=== PATIENT | male | born 1960 | race Caucasian/White ===

== ENCOUNTER 2023-10-15 11:21 | Inpatient (IN) | payer BC ==
[~2023-10-15 11:21] MED LIST: Iopamidol 300 61% 100 ML VIAL FS ONE
[2023-10-15 12:13] LABS: #Eosinphils 0.1 10x3/uL (0.0-0.5); #Monocytes 0.8 10x3/uL (0.0-1.1); #Neutrophils 7.1 10x3/uL (1.5-8.4); %Basophils 0.4 % (0.0-2.0); %Eosinophils 1.4 % (0.0-6.0); %Lymphocytes 13.6 % (18.0-47.0); %Monocytes 8.7 % (0.0-10.0); %Neutrophils 75.5 % (40.0-75.0); Hemoglobin 16.7 g/dL (13.5-17.5); Mean Corpuscular HGB CONC 34.1 g/dL (32.0-36.0); Mean Corpuscular Hemoglobin 28.7 pg (27.0-33.0); Mean Corpuscular Volume 84.2 fl (81.2-95.1); Mean Platelet Volume 9.8 fl (7.4-10.4); Platelet Count 268 10x3/uL (150-450); RBC Distribution Width 13.3 % (11.5-14.5); Red Blood Cell (RBC) Count 5.82 10x6/uL (4.32-5.72); White Blood Cell (WBC) Count 9.4 10x3/uL (3.5-10.5)
[2023-10-15 12:24] LABS: ALT (SGPT) 39 U/L (8-55); AST (SGOT) 32 U/L (5-34); Albumin 4.4 g/dL (3.4-4.8); Alkaline Phosphatase 98 U/L (40-110); Anion Gap 18 mmol/L (10-20); BUN (Urea Nitrogen) 10 mg/dL (8.4-25.7); Bilirubin, Total 2.6 mg/dL (0.2-1.2); Calc. Creatinine Clearance 0 mL/min (70-130); Calcium 9.6 mg/dL (7.8-10.44); Carbon Dioxide 27 mmol/L (23-31); Chloride 99 mmol/L (98-107); Estimated GFR 73; Globulin 2.3 g/dL (2.4-3.5); Glucose 125 mg/dL (80-115); Lipase 23 U/L (8-78); Potassium 3.7 mmol/L (3.5-5.1); Protein, Total 6.7 g/dL (5.8-8.1); Sodium 140 mmol/L (136-145)
[2023-10-15 12:29] LABS: Troponin I Less than 0.010 ng/mL (< 0.028)
[2023-10-15] MEDS ORDERED: Senokot S 8.6-50 MG TAB PO PRN (16:04)
[2023-10-15] MEDS ORDERED: Guaifenesin DM 100-10/5 ML UDCUP PO PRN (16:04)
[2023-10-15] MEDS ORDERED: Ondansetron PF 4 MG/2 ML Vial IVP PRN (16:04)
[2023-10-15] MEDS ORDERED: Bisacodyl 10 MG SUPP PR PRN (16:04)
[2023-10-15] MEDS ORDERED: Acetaminophen 325 MG TAB PO PRN (16:04)
[2023-10-15] MEDS ORDERED: Morphine 2 MG/ML VIAL SLOW IVP PRN (16:08)
[2023-10-15] MEDS ORDERED: Ketorolac Tromethamine 30 MG/ML VIAL IVP PRN (16:08)
[2023-10-15] MEDS ORDERED: Lidocaine Viscous Sol 2% 15 ml UD Cup FS SCH (17:00)
[2023-10-15 17:58] VITALS: BMI 27.2
[2023-10-15] MEDS: Sodium Chloride 0.9% 1,000 ML IV SCH (18:16)
[2023-10-15] MEDS: Famotidine/PF 20 mg/2ml Vial SLOW IVP SCH (21:23)
[2023-10-16 04:45] LABS: #Basophils 0.1 10x3/uL (0.0-0.2); #Eosinphils 0.2 10x3/uL (0.0-0.5); #Monocytes 0.8 10x3/uL (0.0-1.1); #Neutrophils 6.9 10x3/uL (1.5-8.4); %Basophils 0.6 % (0.0-2.0); %Eosinophils 1.9 % (0.0-6.0); %Lymphocytes 11.2 % (18.0-47.0); %Monocytes 9.3 % (0.0-10.0); %Neutrophils 76.7 % (40.0-75.0); Hematocrit 43.3 % (38.8-50.0); Hemoglobin 14.7 g/dL (13.5-17.5); Mean Corpuscular HGB CONC 33.9 g/dL (32.0-36.0); Mean Corpuscular Hemoglobin 28.9 pg (27.0-33.0); Mean Corpuscular Volume 85.1 fl (81.2-95.1); Mean Platelet Volume 9.8 fl (7.4-10.4); Platelet Count 233 10x3/uL (150-450); RBC Distribution Width 13.2 % (11.5-14.5); Red Blood Cell (RBC) Count 5.09 10x6/uL (4.32-5.72); White Blood Cell (WBC) Count 8.9 10x3/uL (3.5-10.5)
[2023-10-16] MEDS: Sodium Chloride 0.9% 1,000 ML IV SCH ×3 (04:47→21:48)
[2023-10-16 05:24] LABS: ALT (SGPT) 43 U/L (8-55); AST (SGOT) 35 U/L (5-34); Albumin 3.7 g/dL (3.4-4.8); Alkaline Phosphatase 87 U/L (40-110); Anion Gap 16 mmol/L (10-20); BUN (Urea Nitrogen) 13 mg/dL (8.4-25.7); Bilirubin, Total 2.6 mg/dL (0.2-1.2); Calc. Creatinine Clearance 90 mL/min (70-130); Calcium 8.8 mg/dL (7.8-10.44); Carbon Dioxide 25 mmol/L (23-31); Chloride 103 mmol/L (98-107); Estimated GFR 81; Globulin 2.2 g/dL (2.4-3.5); Glucose 103 mg/dL (80-115); Potassium 3.7 mmol/L (3.5-5.1); Protein, Total 5.9 g/dL (5.8-8.1); Sodium 140 mmol/L (136-145)
[2023-10-16] MEDS: Enoxaparin 40 MG (0.4 mL) SYRINGE SC SCH (09:28)
[2023-10-16] MEDS: Famotidine/PF 20 mg/2ml Vial SLOW IVP SCH (09:28)
[2023-10-16] MEDS ORDERED: MD-Gastroview 120 ML BOT ONE (10:40)
[2023-10-16] MEDS ORDERED: Ondansetron PF 4 MG/2 ML Vial IVP SCH (14:45)
[2023-10-16] MEDS ORDERED: Ketorolac Tromethamine 30 MG/ML VIAL IVP SCH (20:00)
[2023-10-16] MEDS: Ondansetron PF 4 MG/2 ML Vial IVP PRN (20:30)
[2023-10-17] MEDS: Sodium Chloride 0.9% 1,000 ML IV SCH ×4 (05:15→23:15)
[2023-10-17 05:55] LABS: #Eosinphils 0.1 10x3/uL (0.0-0.5); #Monocytes 0.9 10x3/uL (0.0-1.1); #Neutrophils 5.4 10x3/uL (1.5-8.4); %Basophils 0.6 % (0.0-2.0); %Eosinophils 0.9 % (0.0-6.0); %Lymphocytes 7.5 % (18.0-47.0); %Monocytes 13.1 % (0.0-10.0); %Neutrophils 77.6 % (40.0-75.0); Hematocrit 43.4 % (38.8-50.0); Hemoglobin 14.7 g/dL (13.5-17.5); Mean Corpuscular HGB CONC 33.9 g/dL (32.0-36.0); Mean Corpuscular Hemoglobin 28.8 pg (27.0-33.0); Mean Corpuscular Volume 84.9 fl (81.2-95.1); Mean Platelet Volume 10.1 fl (7.4-10.4); Platelet Count 270 10x3/uL (150-450); RBC Distribution Width 13.5 % (11.5-14.5); Red Blood Cell (RBC) Count 5.11 10x6/uL (4.32-5.72); White Blood Cell (WBC) Count 6.9 10x3/uL (3.5-10.5)
[2023-10-17 06:01] LABS: Anion Gap 20 mmol/L (10-20); BUN (Urea Nitrogen) 18 mg/dL (8.4-25.7); Bilirubin, Total 2.6 mg/dL (0.2-1.2); Calc. Creatinine Clearance 84 mL/min (70-130); Carbon Dioxide 21 mmol/L (23-31); Chloride 108 mmol/L (98-107); Estimated GFR 75; Glucose 119 mg/dL (80-115); Sodium 144 mmol/L (136-145)
[2023-10-17 08:20] LABS: Potassium 3.8 mmol/L (3.5-5.1)
[2023-10-17] MEDS: Enoxaparin 40 MG (0.4 mL) SYRINGE SC SCH (09:06)
[2023-10-17] MEDS: Pantoprazole 40 MG VIAL IVP SCH (09:07)
[2023-10-18] MEDS: Sodium Chloride 0.9% 1,000 ML IV SCH (04:51)
[2023-10-18 06:04] LABS: Hematocrit 40.6 % (38.8-50.0); Hemoglobin 13.2 g/dL (13.5-17.5); Mean Corpuscular HGB CONC 32.5 g/dL (32.0-36.0); Mean Corpuscular Hemoglobin 28.3 pg (27.0-33.0); Mean Corpuscular Volume 86.9 fl (81.2-95.1); Mean Platelet Volume 9.7 fl (7.4-10.4); Platelet Count 216 10x3/uL (150-450); RBC Distribution Width 13.7 % (11.5-14.5); Red Blood Cell (RBC) Count 4.67 10x6/uL (4.32-5.72); White Blood Cell (WBC) Count 5.9 10x3/uL (3.5-10.5)
[2023-10-18 06:36] LABS: Platelet Adequacy Comment Appears Adequate; RBC Morph Comment Within Normal Limits
[2023-10-18 06:38] LABS: Band 9 % (5-11); Eosinophils 6 % (0-10); Lymphocytes 11 % (21-51); Monocytes 13 % (0-10)
[2023-10-18 06:39] LABS: ALT (SGPT) 53 U/L (8-55); AST (SGOT) 42 U/L (5-34); Albumin 3.5 g/dL (3.4-4.8); Alkaline Phosphatase 102 U/L (40-110); Anion Gap 14 mmol/L (10-20); BUN (Urea Nitrogen) 11 mg/dL (8.4-25.7); Bilirubin, Total 1.7 mg/dL (0.2-1.2); Calc. Creatinine Clearance 107 mL/min (70-130); Calcium 8.2 mg/dL (7.8-10.44); Carbon Dioxide 24 mmol/L (23-31); Chloride 106 mmol/L (98-107); Estimated GFR 98; Glucose 109 mg/dL (80-115); Magnesium 1.9 mg/dL (1.6-2.6); Potassium 3.2 mmol/L (3.5-5.1); Protein, Total 5.5 g/dL (5.8-8.1); Sodium 141 mmol/L (136-145)
[2023-10-18 06:48] LABS: MDiff Complete? YES
[2023-10-18] MEDS ORDERED: Potassium Bicarbonate/Cit Ac 20 MEQ TAB PO SCH (09:00)
[2023-10-18] MEDS: Pantoprazole 40 MG VIAL IVP SCH (09:13)
[2023-10-18] MEDS ORDERED: Magnesium 2 GM/50 ML(in water) 2 GM in Premix 1 BAG IVPB SCH (10:00)
[2023-10-18] MEDS: ADMIXTURE FEE IV SCH ×3 (11:00→23:11)
[2023-10-18] MEDS: [UNRECOGNIZED DRUG - OTHER] IV SCH ×3 (11:00→23:11)
[2023-10-18] MEDS: POTASSIUM CHLORIDE IV SCH ×3 (11:00→23:11)
[2023-10-18] MEDS ORDERED: Enoxaparin 40 MG (0.4 mL) SYRINGE SC SCH (21:00)
[2023-10-19 05:52] LABS: #Eosinphils 0.2 10x3/uL (0.0-0.5); #Monocytes 0.7 10x3/uL (0.0-1.1); #Neutrophils 4.6 10x3/uL (1.5-8.4); %Basophils 0.5 % (0.0-2.0); %Eosinophils 2.8 % (0.0-6.0); %Lymphocytes 15.6 % (18.0-47.0); %Monocytes 10.3 % (0.0-10.0); %Neutrophils 70.5 % (40.0-75.0); Hematocrit 41.8 % (38.8-50.0); Hemoglobin 14.3 g/dL (13.5-17.5); Mean Corpuscular HGB CONC 34.2 g/dL (32.0-36.0); Mean Corpuscular Volume 84.8 fl (81.2-95.1); Mean Platelet Volume 9.9 fl (7.4-10.4); Platelet Count 226 10x3/uL (150-450); RBC Distribution Width 13.4 % (11.5-14.5); Red Blood Cell (RBC) Count 4.93 10x6/uL (4.32-5.72); White Blood Cell (WBC) Count 6.5 10x3/uL (3.5-10.5)
[2023-10-19] MEDS: ADMIXTURE FEE IV SCH ×2 (05:52→16:00)
[2023-10-19] MEDS: [UNRECOGNIZED DRUG - OTHER] IV SCH ×2 (05:52→16:00)
[2023-10-19] MEDS: POTASSIUM CHLORIDE IV SCH ×2 (05:52→16:00)
[2023-10-19 06:23] LABS: ALT (SGPT) 60 U/L (8-55); AST (SGOT) 42 U/L (5-34); Albumin 3.6 g/dL (3.4-4.8); Alkaline Phosphatase 111 U/L (40-110); Anion Gap 14 mmol/L (10-20); BUN (Urea Nitrogen) 7 mg/dL (8.4-25.7); Bilirubin, Total 1.8 mg/dL (0.2-1.2); Calc. Creatinine Clearance 105 mL/min (70-130); Calcium 8.5 mg/dL (7.8-10.44); Carbon Dioxide 27 mmol/L (23-31); Chloride 105 mmol/L (98-107); Estimated GFR 97; Globulin 2.4 g/dL (2.4-3.5); Glucose 135 mg/dL (80-115); Potassium 3.5 mmol/L (3.5-5.1); Sodium 142 mmol/L (136-145)
[2023-10-19] MEDS: Pantoprazole 40 MG VIAL IVP SCH (08:40)
[2023-10-19] MEDS: Ondansetron PF 4 MG/2 ML Vial IVP PRN (14:08)
[2023-10-19] MEDS ORDERED: ADMIXTURE FEE IV SCH (16:42)
[2023-10-19] MEDS ORDERED: [UNRECOGNIZED DRUG - OTHER] IV SCH (16:42)
[2023-10-19] MEDS ORDERED: POTASSIUM CHLORIDE IV SCH (16:42)
[2023-10-19] MEDS: Acetaminophen 325 MG TAB PO PRN (19:26)
[2023-10-19] MEDS: Lactated Ringer's 1,000 ML IV SCH (20:30)
[2023-10-20] MEDS: Lactated Ringer's 1,000 ML IV SCH (03:52)
[2023-10-20 04:20] LABS: Hematocrit 36.9 % (38.8-50.0); Hemoglobin 12.6 g/dL (13.5-17.5); Mean Corpuscular HGB CONC 34.1 g/dL (32.0-36.0); Mean Corpuscular Hemoglobin 28.5 pg (27.0-33.0); Mean Corpuscular Volume 83.5 fl (81.2-95.1); Mean Platelet Volume 10.2 fl (7.4-10.4); Platelet Count 187 10x3/uL (150-450); RBC Distribution Width 13.6 % (11.5-14.5); Red Blood Cell (RBC) Count 4.42 10x6/uL (4.32-5.72); White Blood Cell (WBC) Count 11.8 10x3/uL (3.5-10.5)
[2023-10-20 04:31] LABS: ALT (SGPT) 65 U/L (8-55); AST (SGOT) 45 U/L (5-34); Albumin 3.2 g/dL (3.4-4.8); Alkaline Phosphatase 133 U/L (40-110); Anion Gap 14 mmol/L (10-20); BUN (Urea Nitrogen) 7 mg/dL (8.4-25.7); Bilirubin, Total 2.8 mg/dL (0.2-1.2); Calc. Creatinine Clearance 94 mL/min (70-130); Carbon Dioxide 23 mmol/L (23-31); Chloride 104 mmol/L (98-107); Estimated GFR 85; Globulin 2.1 g/dL (2.4-3.5); Glucose 116 mg/dL (80-115); Magnesium 1.4 mg/dL (1.6-2.6); Potassium 3.1 mmol/L (3.5-5.1); Protein, Total 5.3 g/dL (5.8-8.1); Sodium 138 mmol/L (136-145)
[2023-10-20 04:33] LABS: Phosphorus 2.4 mg/dL (2.3-4.7)
[2023-10-20 05:07] LABS: MDiff Complete? YES; Platelet Adequacy Comment Appears Adequate; RBC Morph Comment Within Normal Limits
[2023-10-20 05:11] LABS: Band 12 % (5-11); Eosinophils 2 % (0-10); Lymphocytes 7 % (21-51); Metamyelocyte 2 % (0-0); Monocytes 5 % (0-10); Neutrophil 72 % (42-75)
[2023-10-20] MEDS: Pantoprazole 40 MG VIAL IVP SCH (08:25)
[2023-10-20] MEDS: Polyethylene Glycol 3350 17 GM Packet PO SCH (08:25)
[2023-10-20] MEDS: Potassium Chloride 20 MEQ in Lactated Ringer's 1,000 ML IV SCH ×2 (10:16→18:36)
[2023-10-20] MEDS: Magnesium 2 GM/50 ML(in water) 2 GM in Premix 1 BAG IVPB SCH ×2 (10:17→13:14)
[2023-10-21] MEDS: Acetaminophen 325 MG TAB PO PRN (01:28)
[2023-10-21] MEDS: Potassium Chloride 20 MEQ in Lactated Ringer's 1,000 ML IV SCH ×2 (02:17→12:40)
[2023-10-21 04:33] LABS: Hematocrit 40.5 % (38.8-50.0); Hemoglobin 13.6 g/dL (13.5-17.5); Mean Corpuscular HGB CONC 33.6 g/dL (32.0-36.0); Mean Corpuscular Hemoglobin 28.3 pg (27.0-33.0); Mean Corpuscular Volume 84.4 fl (81.2-95.1); Mean Platelet Volume 10.5 fl (7.4-10.4); Platelet Count 154 10x3/uL (150-450); RBC Distribution Width 13.7 % (11.5-14.5); White Blood Cell (WBC) Count 19.5 10x3/uL (3.5-10.5)
[2023-10-21 04:41] LABS: MDiff Complete? YES; Platelet Adequacy Comment Appears Adequate; RBC Morph Comment Within Normal Limits
[2023-10-21 04:47] LABS: ALT (SGPT) 50 U/L (8-55); AST (SGOT) 31 U/L (5-34); Albumin 3.2 g/dL (3.4-4.8); Alkaline Phosphatase 124 U/L (40-110); Anion Gap 14 mmol/L (10-20); BUN (Urea Nitrogen) 10 mg/dL (8.4-25.7); Bilirubin, Direct 0.7 mg/dL (0.1-0.3); Bilirubin, Total 2.8 mg/dL (0.2-1.2); Calc. Creatinine Clearance 111 mL/min (70-130); Calcium 8.2 mg/dL (7.8-10.44); Carbon Dioxide 24 mmol/L (23-31); Chloride 103 mmol/L (98-107); Estimated GFR 99; Glucose 128 mg/dL (80-115); Iron 8 ug/dL (65-175); Iron Binding Capacity, Total 165 mcg/dL (261-462); Magnesium 2.3 mg/dL (1.6-2.6); Potassium 3.5 mmol/L (3.5-5.1); Protein, Total 5.6 g/dL (5.8-8.1); Sodium 137 mmol/L (136-145)
[2023-10-21 05:02] LABS: Band 12 % (5-11); Lymphocytes 5 % (21-51); Monocytes 4 % (0-10); Neutrophil 79 % (42-75)
[2023-10-21 05:05] LABS: Ferritin 764.45 ng/mL (22-322)
[2023-10-21 05:12] LABS: Hep B Surf Ag Non-Reactive S/CO (NonReactive)
[2023-10-21] MEDS: Pantoprazole 40 MG VIAL IVP SCH (10:30)
[2023-10-21] MEDS: Polyethylene Glycol 3350 17 GM Packet PO SCH (12:17)
[2023-10-21 14:27] LABS: HBSAB Concentration 203.57 mIU/mL; Hep B Surf AB Reactive (NonReactive); Hep C IgG Ab Non-Reactive S/CO (NonReactive); Hep C Index 0.05 S/CO (0-0.79)
[2023-10-22] MEDS: Potassium Chloride 20 MEQ in Lactated Ringer's 1,000 ML IV SCH ×2 (01:43→01:44)
[2023-10-22 04:38] LABS: #Eosinphils 0.1 10x3/uL (0.0-0.5); #Monocytes 0.6 10x3/uL (0.0-1.1); #Neutrophils 8.9 10x3/uL (1.5-8.4); %Basophils 0.3 % (0.0-2.0); %Eosinophils 1.2 % (0.0-6.0); %Lymphocytes 9.3 % (18.0-47.0); %Monocytes 5.5 % (0.0-10.0); Hematocrit 36.4 % (38.8-50.0); Hemoglobin 12.3 g/dL (13.5-17.5); Mean Corpuscular HGB CONC 33.8 g/dL (32.0-36.0); Mean Corpuscular Hemoglobin 28.5 pg (27.0-33.0); Mean Corpuscular Volume 84.5 fl (81.2-95.1); Mean Platelet Volume 11.4 fl (7.4-10.4); Platelet Count 121 10x3/uL (150-450); RBC Distribution Width 13.9 % (11.5-14.5); Red Blood Cell (RBC) Count 4.31 10x6/uL (4.32-5.72); White Blood Cell (WBC) Count 10.7 10x3/uL (3.5-10.5)
[2023-10-22 04:48] LABS: ALT (SGPT) 38 U/L (8-55); AST (SGOT) 25 U/L (5-34); Albumin 2.9 g/dL (3.4-4.8); Alkaline Phosphatase 99 U/L (40-110); Anion Gap 13 mmol/L (10-20); BUN (Urea Nitrogen) 10 mg/dL (8.4-25.7); Bilirubin, Total 1.4 mg/dL (0.2-1.2); Calc. Creatinine Clearance 118 mL/min (70-130); Calcium 8.2 mg/dL (7.8-10.44); Carbon Dioxide 26 mmol/L (23-31); Chloride 103 mmol/L (98-107); Estimated GFR 101; Globulin 2.5 g/dL (2.4-3.5); Glucose 110 mg/dL (80-115); Magnesium 2.1 mg/dL (1.6-2.6); Phosphorus 2.6 mg/dL (2.3-4.7); Potassium 4.2 mmol/L (3.5-5.1); Protein, Total 5.4 g/dL (5.8-8.1); Sodium 138 mmol/L (136-145)
[2023-10-22] MEDS: Polyethylene Glycol 3350 17 GM Packet PO SCH (09:33)
[2023-10-22] MEDS: Pantoprazole 40 MG VIAL IVP SCH (09:33)
[2023-10-22 12:55] VITALS: BP 157/88; TEMP 98.1
== END 2023-10-22 13:41 | disposition home or self-care (01) | DRG 387 ==
LOC: CSHERS 11:21 → CSHTELE 16:07 → OBSVTOIN 10-16 12:39
PROVIDERS: ADMIT Hospitalist; ATTEND Internal Medicine
PROC: 0DH67UZ Insertion of Feeding Device into Stomach, Via Natural or Artificial Opening (ICD-10-PCS; principal; 2023-10-16)
DX: K50.012 Crohn's disease of small intestine with intestinal obstruction (principal); R79.89 Other specified abnormal findings of blood chemistry; N18.2 Chronic kidney disease, stage 2 (mild); E80.4 Gilbert syndrome; E87.6 Hypokalemia; E86.0 Dehydration; E83.42 Hypomagnesemia; Z98.890 Other specified postprocedural states; Z79.899 Other long term (current) drug therapy
CPT/HCPCS: 36415; 74018; 74019; 74177; 74250; 80048; 80053; 80076; 82247; 82248; 82728; 83540; 83550; 83690; 83735; 84100; 84484; 85025; 86140; 86706; 86708; 86803; 87340; 93005; 96360; 96361; 96374; 96375; 96376; C9113; G0378; J1650; J1885; J2272; J2405; J3475; J3480; J7050; J7120; Q9963; Q9967; S0028